=== PATIENT | female | born 1975 | race Caucasian/White ===

== ENCOUNTER → 2025-01-02 07:51 | Outpatient (REF) | payer OTHER, SELFPAY | LOC: HWWDC 07:51 | PROVIDERS: ATTENDING PHYSICIAN Nurse Practitioner Women's Health; FAMILY PHYSICIAN Family Medicine | DX: Z12.31 Encounter for screening mammogram for malignant neoplasm of breast (principal); R92.30 Dense breasts, unspecified | CPT/HCPCS: 77063; 77067 ==